=== PATIENT | female | born 1945 ===

== ENCOUNTER 2023-10-19 08:00 | Outpatient (CLI) | payer MEDICARE, OTHER ==
[2023-10-19 21:40] LABS: CALCIUM 9.2 mg/dL (8.5-10.3); CREATININE 1.1 mg/dL (0.6-1.3); ESTIMATED AVERAGE GLUCOSE 154 mg/dL (70-100); POTASSIUM 4.4 mmol/L (3.5-4.5); URIC ACID 6.1 mg/dL (2.3-6.6)
== END 2023-10-19 23:59 | disposition home or self-care (01) ==
LOC: LAB.R 08:00
PROVIDERS: ATTEND Registered Nurse
DX: E11.22 Type 2 diabetes mellitus with diabetic chronic kidney disease (principal); N18.31 Chronic kidney disease, stage 3a
CPT/HCPCS: 80048; 83036; 84550